=== PATIENT | female | born 1990 | race Caucasian/White ===

== ENCOUNTER 2017-12-06 07:40 | Emergency (ER) | payer SELFPAY ==
[~2017-12-06] VITALS: Ht 160 cm; Wt 107.3 kg
[2017-12-06 07:43] VITALS: Ht 160 cm; Wt 107.3 kg
[2017-12-06 10:15] LABS: ALBUMIN 3.3 g/dL (3.4-5.0); ALKALINE PHOSPHATASE 87 U/L (46-116); ALT (SGPT) 37 U/L (10-68); BILIRUBIN - TOTAL 0.37 mg/dL (0.2-1.3); CALC OSMOLALITY 277 mosm/kg (275-300); CALCIUM 8.6 mg/dL (8.5-10.1); CARBON DIOXIDE 27.6 mmol/L (21.0-32.0); CHLORIDE - SERUM 105 mmol/L (98-107); CREATININE - SERUM 0.7 mg/dL (0.6-1.3); GLUCOSE 97 mg/dL (74-106); POTASSIUM - SERUM 4.2 mmol/L (3.5-5.1); PROTEIN - SERUM 7.1 g/dL (6.4-8.2); SODIUM 140 mmol/L (136-145); UREA NITROGEN 9 mg/dL (7-18); eGFR NON AFRICAN AMERICAN > 90 mL/min (90-120)
[2017-12-06 10:18] LABS: TROPONIN-I < 0.017 ng/mL (0.000-0.060)
[2017-12-06 10:40] VITALS: BP 98/61
[2017-12-06 10:47] LABS: BASOPHILS 0.3 % (0-2); EOSINOPHILS 1.1 % (0-7); HEMATOCRIT 41.9 % (36.0-48.0); IMMATURE GRANULOCYTES 0.2 % (0-5); LYMPHOCYTES 18.7 % (15-50); MCHC 33.4 g/dL (31.0-37.0); MCV 95.7 fL (80.0-100.0); MEAN PLATELET VOLUME 9.7 fL (7.4-10.4); NEUTROPHILS 70.7 % (40-80); RBC 4.38 10x6/uL (4.00-5.40); RDW 13.5 % (11.5-14.5)
[2017-12-06 10:49] LABS: PLATELET COUNT 358 10x3/uL (130-400)
== END 2017-12-06 10:40 | disposition home or self-care (01) ==
LOC: D.ER 07:40
PROVIDERS: Emergency Medicine
DX: I47.1 Supraventricular tachycardia (principal)